=== PATIENT | male | born 1960 | race Two or more races ===

== ENCOUNTER 2019-08-19 10:36 | Emergency (ER) | payer BC, OTHER ==
[~2019-08-19] VITALS: Ht 172.7 cm; Wt 94.0 kg
--- NOTE | 2019-08-19 10:57 | NUR ---
C/O DRY MOUTH X 8 DAYS, WHITISH PATCHES ON TONGUE, INCREASED URINARY FREQUENCY, INCREASED THIRST, DECREASED VISION. HAS "BEEN DRINKING A LOT OF WATER." DR DAMON NOW BEDSIDE FOR EXAM. PT'S SPOUSE IN ROOM. PT BILINGUAL; YI SPEAKING SCRIBE ASSISTING.
--- NOTE | 2019-08-19 11:40 | NUR ---
PT AMBULATORY TO & FROM BR W/OUT INCIDENT; GAIT STEADY. UNABLE TO PROVIDE URINE SPECIMEN AT THIS TIME. PT DRINKING WATER.
[2019-08-19 11:44] LABS: BASOPHILS # (AUTO) 0.04 x10^3/uL (0-0.1); BASOPHILS % (AUTO) 0 % (0-1); EOSINOPHILS # (AUTO) 0.15 x10^3/uL (0-0.4); EOSINOPHILS % (AUTO) 2 % (1-7); LYMPHOCYTES % (AUTO) 23 % (22-44); MD NO; MEAN CORPUSCULAR HEMOGLOBIN 30.3 pg (27.5-34.5); MEAN CORPUSCULAR HGB CONC 33.7 g/dL (33.2-36.2); MEAN CORPUSCULAR VOLUME 89.8 fL (81-97); MEAN PLATELET VOLUME 8.4 fL (7.4-10.4); MONOCYTES # (AUTO) 0.31 x10^3/uL (0.2-0.8); MONOCYTES % (AUTO) 4 % (2-9); NEUTROPHILS # (AUTO) 6.29 x10^3/uL (1.8-6.8); NEUTROPHILS % (AUTO) 72 % (42-75); PLATELET COUNT 197 x10^3/uL (130-400); RED CELL DISTRIBUTION WIDTH 12.1 % (9.4-14.8)
[2019-08-19 11:47] LABS: ALANINE AMINOTRANSFERASE 27 U/L (12-78); ANION GAP 7 mmol/L (5-15); CALCIUM 9.5 mg/dL (8.5-10.1); CHLORIDE 109 mmol/L (98-107); CREATININE 1.11 mg/dL (0.7-1.3)
[2019-08-19 11:49] LABS: ALKALINE PHOSPHATASE 91 U/L (45-117); BILIRUBIN,TOTAL 0.6 mg/dL (0.2-1.0); TOTAL PROTEIN 8.6 g/dL (6.4-8.2)
--- NOTE | 2019-08-19 12:20 | NUR ---
PT AMBULATORY TO [facility] W/OUT INCIDENT.
[2019-08-19 12:31] LABS: ACETONE, SERUM Small (20mg/dL) (Negative)
--- NOTE | 2019-08-19 12:43 | NUR ---
PT STILL IN BR; REPORTS UNABLE TO PROVIDE URINE SPECIMEN. DR DAMON WILL BE NOTIFIED.
--- NOTE | 2019-08-19 12:45 | NUR ---
PT AMBULATORY BACK TO ED ROOM W/OUT INCIDENT.
--- NOTE | 2019-08-19 13:31 | NUR ---
SRI LANKAN SPEAKING SCRIBE DISCUSSING DC INSTRUCTIONS W/ PT AND HIS SPOUSE.
[2019-08-19 13:33] VITALS: BP 144/84
== END 2019-08-19 13:38 | disposition home or self-care (01) ==
LOC: ED 13:29
DX: E11.65 Type 2 diabetes mellitus with hyperglycemia (principal); R63.4 Abnormal weight loss; R00.0 Tachycardia, unspecified
CPT/HCPCS: 36415; 80053; 82010; 82800; 82962; 83036; 85025; 93005; 99284